=== PATIENT | female | born 1960 | race American Indian/Alaskan Native ===

== ENCOUNTER 2016-10-28 18:27 | Emergency (ER) | payer OTHER ==
[~2016-10-28] VITALS: Ht 152.4 cm; Wt 86.6 kg
[~2016-10-28 18:27] MED LIST: AMLODIPINE BES2.5 M1; ASPART SQ; ASPI-COR81 M3 PO; BAYETTA; BUPROPION HCL100 M1; CELEXA10 MG; ENALAPRIL MALE2.5 MG PO; ENALAPRIL5 M1; ESCITALOPRAM10 M1 PO; GLYBURIDE5 MG PO; HYDROCHLOROTH12.5 M2; HYDROCHLOROTHIA50 MG PO; HYDROCODONE/ACE1 TA2; LANTI; LEVEMIR100 U/M1 SQ; LIDOCAINE AND P1 CRE TOP; LIPI20 PO; OXYBUTYNIN CHLOR5 MG PO; TEN50 PO; TORADOL10 MG PO; WEL100 PO
[2016-10-28 21:00] LABS: BASOPHIL % 0.4 % (0-2); PLATELET COUNT 192 x10^3mcL (130-400)
[2016-10-28 21:05] LABS: CALCIUM 8.6 mg/dL (8.5-10.1); CARBON DIOXIDE 32.3 mmol/L (21-32); CHLORIDE SERUM 98 mmol/L (98-107); CREATININE SERUM 0.7 mg/dL (0.6-1.0); GFR1 > 60 mL/min; GLUCOSE SERUM 425 mg/dL (74-106); POTASSIUM SERUM 3.9 mmol/L (3.5-5.1); SODIUM SERUM 136 mmol/L (136-145)
[2016-10-28 21:09] LABS: ALKALINE PHOSPHATASE 86 U/L (46-116); ALT/SGPT 39 U/L (14-59); AST/SGOT 15 U/L (15-37); BILIRUBIN TOTAL 0.3 mg/dL (0.20-1.00); TOTAL PROTEIN, SERUM 6.8 g/dL (6.4-8.2)
[2016-10-28 21:10] LABS: ALBUMIN 3.3 g/dL (3.4-5.0)
[2016-10-28 23:21] VITALS: BP 165/107
== END 2016-10-28 23:21 | disposition home or self-care (01) ==
LOC: ED 18:27
PROVIDERS: Emergency Medicine
DX: M54.5 Low back pain (principal); E11.65 Type 2 diabetes mellitus with hyperglycemia; G89.29 Other chronic pain; I10 Essential (primary) hypertension; Z88.5 Allergy status to narcotic agent
CPT/HCPCS: 82962; J1815; J1885; J7030

== ENCOUNTER 2017-02-07 12:38 | Inpatient (IN) | payer OTHER ==
[2017-02-07 14:41] LABS: BASOPHIL % 0.1 % (0-2); PLATELET COUNT 192 x10^3mcL (130-400); RED CELL DISTRIBUTION WIDTH 12.8 % (11.5-14.5)
[2017-02-07 15:17] LABS: ALKALINE PHOSPHATASE 85 U/L (46-116); ALT/SGPT 32 U/L (14-59); AST/SGOT 17 U/L (15-37); BILIRUBIN TOTAL 0.5 mg/dL (0.20-1.00); CALCIUM 8.2 mg/dL (8.5-10.1); CARBON DIOXIDE 29.6 mmol/L (21-32); CHLORIDE SERUM 102 mmol/L (98-107); CREATININE SERUM 0.8 mg/dL (0.6-1.0); GFR1 > 60 mL/min; SODIUM SERUM 136 mmol/L (136-145); TOTAL PROTEIN, SERUM 6.6 g/dL (6.4-8.2)
[2017-02-07 15:22] LABS: ALBUMIN 2.9 g/dL (3.4-5.0)
[2017-02-07 15:23] LABS: GLUCOSE SERUM 512 mg/dL (74-106)
[2017-02-07 16:09] LABS: microscopic required? YES
[2017-02-07 16:10] LABS: urine erythrocyte 3+ (NEGATIVE)
[2017-02-07 17:22] LABS: MAGNESIUM 2.2 mg/dL (1.8-2.4); PHOSPHOROUS 2.2 mg/dL (2.5-4.9)
[2017-02-07 17:29] LABS: CHOLESTEROL/HDL RATIO 2.9
[2017-02-07 18:23] LABS: FREE T4 1.01 ng/dL (0.76-1.46); T4(THYROXINE) 8.6 ug/dL (4.7-13.3)
[2017-02-07 19:24] LABS: T3 TOTAL 1.19 ng/mL
[2017-02-07 21:56] VITALS: BP 144/84
[2017-02-08] VITALS (7 sets, daily range): BP systolic 125–185; BP diastolic 62–89
[2017-02-08 07:18] LABS: CALCIUM 8.1 mg/dL (8.5-10.1); CARBON DIOXIDE 29.4 mmol/L (21-32); CHLORIDE SERUM 107 mmol/L (98-107); CREATININE SERUM 0.5 mg/dL (0.6-1.0); GFR1 > 60 mL/min; GLUCOSE SERUM 170 mg/dL (74-106); PHOSPHOROUS 2.9 mg/dL (2.5-4.9); POTASSIUM SERUM 3.7 mmol/L (3.5-5.1); SODIUM SERUM 141 mmol/L (136-145)
[2017-02-09 05:57] VITALS: BP 162/82
[2017-02-09 07:33] LABS: CALCIUM 8.1 mg/dL (8.5-10.1); CHLORIDE SERUM 108 mmol/L (98-107); CREATININE SERUM 0.5 mg/dL (0.6-1.0); GFR1 > 60 mL/min; GLUCOSE SERUM 115 mg/dL (74-106); POTASSIUM SERUM 3.5 mmol/L (3.5-5.1); SODIUM SERUM 142 mmol/L (136-145)
[2017-02-09 08:57] VITALS: BP 154/84; BP 162/82
[2017-02-09 09:06] VITALS: BP 173/96
[2017-02-09] MEDS ORDERED: LEVAQUIN750 MG PO (09:53)
[2017-02-09] MEDS ORDERED: MIRALAX17 GM/Dose PO (09:53)
[2017-02-09 11:55] VITALS: BP 183/91
[2017-02-09 12:47] VITALS: BP 189/93
[2017-02-09] MEDS ORDERED: AMLODIPINE BES2.5 M1 PO ×2 (12:57→14:49)
[2017-02-09 13:58] VITALS: BP 154/84
[2017-02-09] MEDS ORDERED: ADULT LOW DOSE81 MG PO (14:45)
[2017-02-09] MEDS ORDERED: NEU100 PO (14:49)
[2017-02-09] MEDS ORDERED: ENALAPRIL MALE2.5 MG PO (14:49)
[2017-02-09] MEDS ORDERED: TEN50 PO (14:49)
[2017-02-09] MEDS ORDERED: WEL100 PO (14:49)
[2017-02-09] MEDS ORDERED: LIDOCAINE AND P1 CRE TOP (14:49)
[2017-02-09] MEDS ORDERED: LIPI20 PO (14:49)
[2017-02-09] MEDS ORDERED: ELA25 PO (14:49)
[2017-02-09] MEDS ORDERED: BG FS (14:49)
[2017-02-09] MEDS ORDERED: BAYETTA (14:49)
[2017-02-09] MEDS ORDERED: GLU500 PO (14:49)
[2017-02-09] MEDS ORDERED: LEVEMIR100 U/M1 SQ ×2 (14:49)
[2017-02-09] MEDS ORDERED: OXYBUTYNIN CHLOR5 MG PO (14:49)
[2017-02-09] MEDS ORDERED: ESCITALOPRAM10 M1 PO (14:49)
== END 2017-02-09 16:36 | disposition home or self-care (01) | DRG 465 ==
LOC: ED 12:38 → DU 15:40 → MU 02-09 12:52
PROVIDERS: Emergency Medicine; ADMIT Family Medicine
DX: N13.30 Unspecified hydronephrosis (principal); E11.40 Type 2 diabetes mellitus with diabetic neuropathy, unspecified; E44.0 Moderate protein-calorie malnutrition; E11.65 Type 2 diabetes mellitus with hyperglycemia; K59.09 Other constipation; G89.29 Other chronic pain; M54.9 Dorsalgia, unspecified; I10 Essential (primary) hypertension; F32.9 Major depressive disorder, single episode, unspecified; B96.20 Unspecified Escherichia coli [E. coli] as the cause of diseases classified elsewhere; N39.0 Urinary tract infection, site not specified; F17.210 Nicotine dependence, cigarettes, uncomplicated; R32 Unspecified urinary incontinence; E83.51 Hypocalcemia; Z90.49 Acquired absence of other specified parts of digestive tract; Z88.5 Allergy status to narcotic agent; Z79.899 Other long term (current) drug therapy; Z79.4 Long term (current) use of insulin; Z83.3 Family history of diabetes mellitus; Z82.49 Family history of ischemic heart disease and other diseases of the circulatory system; Z82.0 Family history of epilepsy and other diseases of the nervous system; Z68.30 Body mass index [BMI] 30.0-30.9, adult
CPT/HCPCS: 76770; 82962; 83880; 84439; J1815; J1885; J1956; J2765; J3490; J7030; Q0092

== ENCOUNTER 2017-08-24 01:24 | Emergency (ER) | payer OTHER ==
[~2017-08-24] VITALS: Ht 149.9 cm; Wt 84.0 kg
[~2017-08-24 01:24] MED LIST changes: +ADULT LOW DOSE81 MG PO; +AMLODIPINE BES2.5 M1 PO; +BG FS; +ELA25 PO; +GLU500 PO; +LEVAQUIN750 MG PO; +MIRALAX17 GM/Dose PO; +NEU100 PO
[2017-08-24 01:30] VITALS: Ht 149.9 cm; Wt 84.0 kg
[2017-08-24 02:55] LABS: UA SPECIFIC GRAVITY 1.015 (1.005-1.035); urine erythrocyte NEGATIVE (NEGATIVE)
[2017-08-24 03:00] LABS: microscopic required? YES
[2017-08-24 03:16] LABS: CALCIUM 8.7 mg/dL (8.5-10.1); CARBON DIOXIDE 15.3 mmol/L (21-32); POTASSIUM SERUM 4.5 mmol/L (3.5-5.1)
[2017-08-24 03:22] LABS: CREATININE SERUM 1.1 mg/dL (0.6-1.0)
[2017-08-24 06:35] VITALS: BP 161/90
== END 2017-08-24 06:35 | disposition home or self-care (01) ==
LOC: ED 01:24
PROVIDERS: Emergency Medicine
DX: M54.9 Dorsalgia, unspecified (principal); E11.65 Type 2 diabetes mellitus with hyperglycemia; I10 Essential (primary) hypertension; G89.29 Other chronic pain; Z76.0 Encounter for issue of repeat prescription; Z88.5 Allergy status to narcotic agent
CPT/HCPCS: 36600; 82962; J1815; J1885; J7030; Q0092

== ENCOUNTER 2018-01-05 02:34 | Emergency (ER) | payer OTHER ==
[~2018-01-05] VITALS: Ht 149.9 cm; Wt 87.1 kg
[2018-01-05 04:47] VITALS: BP 141/65
== END 2018-01-05 04:47 | disposition home or self-care (01) ==
LOC: ED 02:34
DX: M54.5 Low back pain (principal); I10 Essential (primary) hypertension; E11.9 Type 2 diabetes mellitus without complications; G89.29 Other chronic pain; F32.9 Major depressive disorder, single episode, unspecified
CPT/HCPCS: J1885; Q0092

== ENCOUNTER 2018-01-27 04:48 | Emergency (ER) | payer OTHER ==
[~2018-01-27] VITALS: Ht 149.9 cm; Wt 85.9 kg
[2018-01-27 04:56] VITALS: Ht 149.9 cm; Wt 85.9 kg
[2018-01-27 08:28] VITALS: BP 148/112
== END 2018-01-27 08:38 | disposition home or self-care (01) ==
LOC: ED 04:48
DX: M54.9 Dorsalgia, unspecified (principal); I16.0 Hypertensive urgency; I10 Essential (primary) hypertension; E11.40 Type 2 diabetes mellitus with diabetic neuropathy, unspecified; M79.7 Fibromyalgia; Z88.5 Allergy status to narcotic agent
CPT/HCPCS: J3010; J3490

== ENCOUNTER 2018-03-26 16:10 | Emergency (ER) | payer OTHER ==
[~2018-03-26] VITALS: Ht 147.3 cm; Wt 84.8 kg
[2018-03-26 16:30] VITALS: Ht 147.3 cm; Wt 84.8 kg
[2018-03-26 17:05] LABS: BASOPHIL % 0.3 % (0-2); PLATELET COUNT 204 x10^3mcL (130-400); RED CELL DISTRIBUTION WIDTH 12.8 % (11.5-14.5)
[2018-03-26 17:22] LABS: CALCIUM 9.9 mg/dL (8.5-10.1); CARBON DIOXIDE 30.1 mmol/L (21-32); CHLORIDE SERUM 98 mmol/L (98-107); CREATININE SERUM 0.7 mg/dL (0.6-1.0); GFR1 > 60 mL/min; GLUCOSE SERUM 341 mg/dL (74-106); POTASSIUM SERUM 4.3 mmol/L (3.5-5.1); SODIUM SERUM 134 mmol/L (136-145)
[2018-03-26 17:27] LABS: ALBUMIN 3.6 g/dL (3.4-5.0); ALKALINE PHOSPHATASE 85 U/L (46-116); ALT/SGPT 48 U/L (14-59); AST/SGOT 25 U/L (15-37); BILIRUBIN TOTAL 0.6 mg/dL (0.20-1.00); LIPASE 139 IU/L (73-393); TOTAL PROTEIN, SERUM 7.3 g/dL (6.4-8.2)
[2018-03-26 18:05] LABS: UA SPECIFIC GRAVITY >=1.030 (1.005-1.035); microscopic required? YES; urine erythrocyte NEGATIVE (NEGATIVE)
[2018-03-26 19:18] VITALS: BP 175/94
== END 2018-03-26 19:18 | disposition home or self-care (01) ==
LOC: ED 16:10
PROVIDERS: Emergency Medicine
DX: N39.0 Urinary tract infection, site not specified (principal); I10 Essential (primary) hypertension; E11.9 Type 2 diabetes mellitus without complications; F32.9 Major depressive disorder, single episode, unspecified; G89.29 Other chronic pain; Z88.5 Allergy status to narcotic agent
CPT/HCPCS: J1885; J2270

== ENCOUNTER 2018-07-18 01:12 | Inpatient (IN) | payer OTHER ==
[~2018-07-18] VITALS: Ht 147.3 cm; Wt 83.9 kg
[2018-07-18 01:21] VITALS: Ht 147.3 cm; Wt 83.9 kg
[2018-07-18 03:37] LABS: BASOPHIL % 0.3 % (0-2); PLATELET COUNT 191 x10^3mcL (130-400); RED CELL DISTRIBUTION WIDTH 12.7 % (11.5-14.5)
[2018-07-18 05:39] LABS: ALBUMIN 3.4 g/dL (3.4-5.0); BILIRUBIN TOTAL 0.36 mg/dL (0.20-1.00); CARBON DIOXIDE 29.4 mmol/L (21-32); CREATININE SERUM 1.1 mg/dL (0.6-1.0); TOTAL PROTEIN, SERUM 7.1 g/dL (6.4-8.2)
[2018-07-18 05:47] LABS: CHOLESTEROL/HDL RATIO 3.5; MAGNESIUM 1.9 mg/dL (1.8-2.4); PHOSPHOROUS 4.3 mg/dL (2.5-4.9)
[2018-07-18 06:12] VITALS: BP 157/80
[2018-07-18 09:09] VITALS: BP 142/84
[2018-07-18 12:23] VITALS: BP 146/72
[2018-07-18 13:01] LABS: microscopic required? YES; urine erythrocyte 2+ (NEGATIVE)
[2018-07-18 17:12] VITALS: BP 169/85
[2018-07-18 18:08] VITALS: BP 149/81
[2018-07-18 21:42] VITALS: BP 144/87
[2018-07-19 05:03] VITALS: BP 139/83
[2018-07-19 07:24] LABS: BASOPHIL % 0.3 % (0-2); PLATELET COUNT 173 x10^3mcL (130-400)
[2018-07-19 07:34] LABS: CALCIUM 8.8 mg/dL (8.5-10.1); CHLORIDE SERUM 105 mmol/L (98-107); CREATININE SERUM 0.6 mg/dL (0.6-1.0); GFR1 > 60 mL/min; GLUCOSE SERUM 145 mg/dL (74-106); PHOSPHOROUS 3.3 mg/dL (2.5-4.9); POTASSIUM SERUM 4.3 mmol/L (3.5-5.1); SODIUM SERUM 143 mmol/L (136-145)
[2018-07-19 08:47] VITALS: BP 168/81
[2018-07-19 12:32] VITALS: BP 139/74
[2018-07-19 13:24] VITALS: BP 139/74
== END 2018-07-19 14:29 | disposition home or self-care (01) | DRG 756 ==
LOC: ED 01:12 → DU 04:14
PROVIDERS: Emergency Medicine; ADMIT Internal Medicine
DX: F41.9 Anxiety disorder, unspecified (principal); N17.0 Acute kidney failure with tubular necrosis; E11.65 Type 2 diabetes mellitus with hyperglycemia; E44.1 Mild protein-calorie malnutrition; I10 Essential (primary) hypertension; F32.9 Major depressive disorder, single episode, unspecified; E78.5 Hyperlipidemia, unspecified; G89.29 Other chronic pain; M54.9 Dorsalgia, unspecified; Z66 Do not resuscitate; F17.210 Nicotine dependence, cigarettes, uncomplicated; Z68.38 Body mass index [BMI] 38.0-38.9, adult; Z79.84 Long term (current) use of oral hypoglycemic drugs; Z88.6 Allergy status to analgesic agent; Z90.49 Acquired absence of other specified parts of digestive tract; Z98.891 History of uterine scar from previous surgery; Z83.3 Family history of diabetes mellitus; Z82.49 Family history of ischemic heart disease and other diseases of the circulatory system; Z82.0 Family history of epilepsy and other diseases of the nervous system
CPT/HCPCS: 82962; 83880; 85378; J2270; J7030; Q0092

== ENCOUNTER 2019-06-12 19:46 | Emergency (ER) | payer OTHER ==
[~2019-06-12] VITALS: Ht 147.3 cm; Wt 79.4 kg
[2019-06-12 20:04] VITALS: Ht 147.3 cm; Wt 79.4 kg
[2019-06-12 21:01] LABS: UA SPECIFIC GRAVITY 1.025 (1.005-1.035); microscopic required? YES; urine erythrocyte TRACE (NEGATIVE)
[2019-06-12 21:06] LABS: BASOPHIL % 0.3 % (0-2); PLATELET COUNT 246 x10^3mcL (130-400); RED CELL DISTRIBUTION WIDTH 12.9 % (11.5-14.5)
[2019-06-12 21:34] LABS: CALCIUM 8.8 mg/dL (8.5-10.1); CHLORIDE SERUM 96 mmol/L (98-107); CREATININE SERUM 0.7 mg/dL (0.6-1.0); GFR1 > 60 mL/min; GLUCOSE SERUM 289 mg/dL (74-106); POTASSIUM SERUM 3.7 mmol/L (3.5-5.1); SODIUM SERUM 134 mmol/L (136-145)
[2019-06-12 21:38] LABS: ALKALINE PHOSPHATASE 78 U/L (46-116); ALT/SGPT 42 U/L (14-59); AST/SGOT 16 U/L (15-37); BILIRUBIN TOTAL 0.4 mg/dL (0.20-1.00); LIPASE 114 IU/L (73-393); TOTAL PROTEIN, SERUM 6.9 g/dL (6.4-8.2)
[2019-06-12 21:51] LABS: ALBUMIN 3.3 g/dL (3.4-5.0)
[2019-06-13 02:01] VITALS: BP 161/79
== END 2019-06-13 02:01 | disposition home or self-care (01) ==
LOC: ED 19:46
PROVIDERS: Emergency Medicine
DX: N39.0 Urinary tract infection, site not specified (principal); K59.00 Constipation, unspecified
CPT/HCPCS: J2270; J2405; J7030; Q9967

== ENCOUNTER 2019-07-14 18:52 | Inpatient (IN) | payer OTHER ==
[~2019-07-14] VITALS: Ht 148.6 cm; Wt 90.1 kg
[2019-07-14 22:29] LABS: UA SPECIFIC GRAVITY >=1.030 (1.005-1.035); microscopic required? YES; urine erythrocyte NEGATIVE (NEGATIVE)
[2019-07-14 23:56] LABS: PLATELET COUNT 205 x10^3mcL (130-400); RED CELL DISTRIBUTION WIDTH 13.1 % (11.5-14.5)
[2019-07-15 00:09] LABS: CALCIUM 8.6 mg/dL (8.5-10.1); CARBON DIOXIDE 28.8 mmol/L (21-32); CHLORIDE SERUM 101 mmol/L (98-107); CREATININE SERUM 0.9 mg/dL (0.6-1.0); GFR1 > 60 mL/min; GLUCOSE SERUM 324 mg/dL (74-106); POTASSIUM SERUM 3.9 mmol/L (3.5-5.1); SODIUM SERUM 139 mmol/L (136-145)
[2019-07-15 00:14] LABS: ALKALINE PHOSPHATASE 70 U/L (46-116); ALT/SGPT 38 U/L (14-59); AST/SGOT 17 U/L (15-37); BILIRUBIN TOTAL 0.4 mg/dL (0.20-1.00); LIPASE 77 IU/L (73-393); TOTAL PROTEIN, SERUM 6.8 g/dL (6.4-8.2)
[2019-07-15 00:43] LABS: ATYPICAL LYMPH 1 %; BAND NEUTROPHIL 2 % (0-10); MONOCYTE 8 % (0-7); PLATELET MORPHOLOGY PLATELETS NORMAL; SEGMENTED NEUTROPHILS 49 % (37-75); rbc morphology (normal/abnorm) NORMAL (NORMAL)
[2019-07-15 00:45] LABS: ALBUMIN 3.3 g/dL (3.4-5.0)
[2019-07-15 02:30] LABS: MAGNESIUM 1.8 mg/dL (1.8-2.4); PHOSPHOROUS 3.4 mg/dL (2.5-4.9)
[2019-07-15 13:27] VITALS: BP 142/71
[2019-07-15 13:30] VITALS: Ht 148.6 cm; Wt 90.1 kg
[2019-07-15 18:01] VITALS: BP 124/50
[2019-07-15 21:25] VITALS: BP 113/48
[2019-07-16 06:11] VITALS: BP 138/51
[2019-07-16 06:34] LABS: BASOPHIL % 0.2 % (0-2); PLATELET COUNT 167 x10^3mcL (130-400); RED CELL DISTRIBUTION WIDTH 13.2 % (11.5-14.5)
[2019-07-16 07:00] LABS: CALCIUM 7.9 mg/dL (8.5-10.1); CARBON DIOXIDE 28.6 mmol/L (21-32); CHLORIDE SERUM 106 mmol/L (98-107); CREATININE SERUM 0.6 mg/dL (0.6-1.0); GFR1 > 60 mL/min; GLUCOSE SERUM 241 mg/dL (74-106); MAGNESIUM 1.9 mg/dL (1.8-2.4); PHOSPHOROUS 2.6 mg/dL (2.5-4.9); POTASSIUM SERUM 3.8 mmol/L (3.5-5.1); SODIUM SERUM 141 mmol/L (136-145)
[2019-07-16 08:42] VITALS: BP 142/78
[2019-07-16 12:55] VITALS: BP 182/87
[2019-07-16 16:25] VITALS: BP 117/54
[2019-07-16 20:16] VITALS: BP 155/76
[2019-07-17 06:00] VITALS: BP 145/59
[2019-07-17 06:22] LABS: BASOPHIL % 0.2 % (0-2); PLATELET COUNT 135 x10^3mcL (130-400); RED CELL DISTRIBUTION WIDTH 13.3 % (11.5-14.5)
[2019-07-17 06:45] LABS: CALCIUM 7.9 mg/dL (8.5-10.1); CARBON DIOXIDE 28.5 mmol/L (21-32); CHLORIDE SERUM 104 mmol/L (98-107); CREATININE SERUM 0.6 mg/dL (0.6-1.0); GFR1 > 60 mL/min; GLUCOSE SERUM 184 mg/dL (74-106); MAGNESIUM 1.7 mg/dL (1.8-2.4); PHOSPHOROUS 2.7 mg/dL (2.5-4.9); POTASSIUM SERUM 3.9 mmol/L (3.5-5.1); SODIUM SERUM 140 mmol/L (136-145)
[2019-07-17 08:02] VITALS: BP 151/75
[2019-07-17 12:35] VITALS: BP 156/70
[2019-07-17 16:00] VITALS: BP 162/78
[2019-07-17 20:20] VITALS: BP 150/59
[2019-07-18 05:49] VITALS: BP 174/76
[2019-07-18 06:43] VITALS: BP 160/76
[2019-07-18 08:24] LABS: BASOPHIL % 0.1 % (0-2); PLATELET COUNT 133 x10^3mcL (130-400); RED CELL DISTRIBUTION WIDTH 13.1 % (11.5-14.5)
[2019-07-18 08:48] LABS: CALCIUM 7.6 mg/dL (8.5-10.1); CHLORIDE SERUM 104 mmol/L (98-107); CREATININE SERUM 0.6 mg/dL (0.6-1.0); GFR1 > 60 mL/min; GLUCOSE SERUM 155 mg/dL (74-106); POTASSIUM SERUM 3.7 mmol/L (3.5-5.1); SODIUM SERUM 138 mmol/L (136-145)
[2019-07-18 09:30] VITALS: BP 136/64
[2019-07-18 13:38] VITALS: BP 150/54
[2019-07-18 17:34] VITALS: BP 149/65
[2019-07-18 20:27] VITALS: BP 157/70
[2019-07-19 06:13] VITALS: BP 164/63
[2019-07-19 06:45] VITALS: BP 147/68
[2019-07-19 06:55] LABS: CALCIUM 7.5 mg/dL (8.5-10.1); CARBON DIOXIDE 28.8 mmol/L (21-32); CHLORIDE SERUM 101 mmol/L (98-107); CREATININE SERUM 0.6 mg/dL (0.6-1.0); GFR1 > 60 mL/min; GLUCOSE SERUM 149 mg/dL (74-106); SODIUM SERUM 136 mmol/L (136-145)
[2019-07-19 09:08] VITALS: BP 160/72
[2019-07-19 12:54] VITALS: BP 95/46
[2019-07-19 17:45] VITALS: BP 142/72
[2019-07-19 20:57] VITALS: BP 145/64
[2019-07-20 04:25] VITALS: BP 121/63
[2019-07-20 06:35] LABS: BASOPHIL % 0.3 % (0-2); PLATELET COUNT 149 x10^3mcL (130-400); RED CELL DISTRIBUTION WIDTH 12.8 % (11.5-14.5)
[2019-07-20 08:48] VITALS: BP 138/100
[2019-07-20 13:26] VITALS: BP 128/61
[2019-07-20 17:34] VITALS: BP 108/69
[2019-07-20 20:11] VITALS: BP 147/79
[2019-07-21 05:34] VITALS: BP 143/78
[2019-07-21 07:32] LABS: CALCIUM 7.7 mg/dL (8.5-10.1); CARBON DIOXIDE 29.3 mmol/L (21-32); CHLORIDE SERUM 101 mmol/L (98-107); CREATININE SERUM 0.7 mg/dL (0.6-1.0); GFR1 > 60 mL/min; GLUCOSE SERUM 132 mg/dL (74-106); POTASSIUM SERUM 4.1 mmol/L (3.5-5.1); SODIUM SERUM 137 mmol/L (136-145)
[2019-07-21 08:28] VITALS: BP 146/81
[2019-07-21 08:44] LABS: BASOPHIL % 0.4 % (0-2); PLATELET COUNT 181 x10^3mcL (130-400); RED CELL DISTRIBUTION WIDTH 12.9 % (11.5-14.5)
[2019-07-21 12:09] VITALS: BP 158/80
[2019-07-21 20:42] VITALS: BP 123/72
[2019-07-22 05:36] VITALS: BP 137/63
[2019-07-22 06:45] LABS: BASOPHIL % 0.4 % (0-2); PLATELET COUNT 195 x10^3mcL (130-400)
[2019-07-22 08:10] LABS: CALCIUM 8.6 mg/dL (8.5-10.1); CARBON DIOXIDE 30.8 mmol/L (21-32); CHLORIDE SERUM 105 mmol/L (98-107); CREATININE SERUM 0.6 mg/dL (0.6-1.0); GFR1 > 60 mL/min; GLUCOSE SERUM 142 mg/dL (74-106); POTASSIUM SERUM 4.2 mmol/L (3.5-5.1); SODIUM SERUM 142 mmol/L (136-145)
[2019-07-22 08:39] VITALS: BP 170/89
[2019-07-22] MEDS ORDERED: LEVAQUIN500 M1 PO (10:33)
[2019-07-22 13:05] VITALS: BP 165/92
[2019-07-22 13:37] VITALS: BP 165/92
[2019-07-22 13:40] VITALS: BP 165/92
== END 2019-07-22 14:34 | disposition home or self-care (01) | DRG 463 ==
LOC: ED 18:52 → MU 07-15 00:42
PROVIDERS: Emergency Medicine; Student in an Organized Health Care Education/Training Program; ADMIT Internal Medicine
DX: N10 Acute pyelonephritis (principal); N17.0 Acute kidney failure with tubular necrosis; E11.40 Type 2 diabetes mellitus with diabetic neuropathy, unspecified; B96.29 Other Escherichia coli [E. coli] as the cause of diseases classified elsewhere; E78.5 Hyperlipidemia, unspecified; G89.29 Other chronic pain; M54.9 Dorsalgia, unspecified; F32.9 Major depressive disorder, single episode, unspecified; F17.210 Nicotine dependence, cigarettes, uncomplicated; I10 Essential (primary) hypertension; M79.7 Fibromyalgia; N32.81 Overactive bladder; Z66 Do not resuscitate; Z68.33 Body mass index [BMI] 33.0-33.9, adult; Z79.4 Long term (current) use of insulin; Z88.5 Allergy status to narcotic agent; Z90.49 Acquired absence of other specified parts of digestive tract; Z56.0 Unemployment, unspecified; Z23 Encounter for immunization; Z87.440 Personal history of urinary (tract) infections; Z83.3 Family history of diabetes mellitus; Z82.49 Family history of ischemic heart disease and other diseases of the circulatory system; Z82.0 Family history of epilepsy and other diseases of the nervous system; Z79.899 Other long term (current) drug therapy
CPT/HCPCS: 82962; 90658; 94150; G0378; J0696; J1200; J1815; J1956; J2185; J2270; J2405; J7030; J7040; J7620; Q0092; Q9967

== ENCOUNTER 2019-10-04 12:25 | Emergency (ER) | payer OTHER ==
[~2019-10-04] VITALS: Ht 147.3 cm; Wt 79.4 kg
[~2019-10-04 12:25] MED LIST changes: +LEVAQUIN500 M1 PO
[2019-10-04 12:39] VITALS: Ht 147.3 cm; Wt 79.4 kg
[2019-10-04 14:33] VITALS: BP 120/71
== END 2019-10-04 14:33 | disposition home or self-care (01) ==
LOC: ED 12:25
DX: S20.229A Contusion of unspecified back wall of thorax, initial encounter (principal); S00.01XA Abrasion of scalp, initial encounter; R07.89 Other chest pain; F17.210 Nicotine dependence, cigarettes, uncomplicated; I10 Essential (primary) hypertension; E11.40 Type 2 diabetes mellitus with diabetic neuropathy, unspecified; G89.29 Other chronic pain; M79.7 Fibromyalgia; H53.8 Other visual disturbances; Z88.5 Allergy status to narcotic agent; W18.2XXA Fall in (into) shower or empty bathtub, initial encounter; Y93.E1 Activity, personal bathing and showering; Y92.091 Bathroom in other non-institutional residence as the place of occurrence of the external cause; Y99.8 Other external cause status
CPT/HCPCS: J1885

== ENCOUNTER 2019-11-04 12:25 | Emergency (ER) | payer OTHER ==
[~2019-11-04] VITALS: Ht 147.3 cm; Wt 82.1 kg
[2019-11-04 12:46] VITALS: Ht 147.3 cm; Wt 82.1 kg
[2019-11-04 14:59] VITALS: BP 173/106
== END 2019-11-04 14:59 | disposition home or self-care (01) ==
LOC: ED 12:25
DX: M54.42 Lumbago with sciatica, left side (principal); M25.552 Pain in left hip; I10 Essential (primary) hypertension; M79.7 Fibromyalgia; E11.40 Type 2 diabetes mellitus with diabetic neuropathy, unspecified; Z88.5 Allergy status to narcotic agent; W01.0XXA Fall on same level from slipping, tripping and stumbling without subsequent striking against object, initial encounter; Y93.89 Activity, other specified; Y92.89 Other specified places as the place of occurrence of the external cause; Y99.8 Other external cause status
CPT/HCPCS: J1885; Q0092

== ENCOUNTER 2019-12-26 14:26 | Emergency (ER) | payer OTHER ==
[~2019-12-26] VITALS: Ht 149.9 cm; Wt 83.0 kg
[2019-12-26 14:53] VITALS: BP 163/100; Ht 149.9 cm; Wt 83.0 kg
== END 2019-12-26 17:29 | disposition home or self-care (01) ==
LOC: ED 14:26
DX: M54.5 Low back pain (principal); G89.29 Other chronic pain; I10 Essential (primary) hypertension; E11.40 Type 2 diabetes mellitus with diabetic neuropathy, unspecified; M79.7 Fibromyalgia; E66.9 Obesity, unspecified; Z88.5 Allergy status to narcotic agent

== ENCOUNTER 2020-03-09 15:40 | Emergency (ER) | payer OTHER ==
[~2020-03-09] VITALS: Ht 147.3 cm; Wt 81.6 kg
[2020-03-09 15:48] VITALS: Ht 147.3 cm; Wt 81.6 kg
[2020-03-09 18:10] VITALS: BP 170/88
== END 2020-03-09 18:28 | disposition home or self-care (01) ==
LOC: ED 15:40
DX: M54.42 Lumbago with sciatica, left side (principal); R06.00 Dyspnea, unspecified; Z87.440 Personal history of urinary (tract) infections; I10 Essential (primary) hypertension; E11.40 Type 2 diabetes mellitus with diabetic neuropathy, unspecified; G89.29 Other chronic pain; M79.7 Fibromyalgia; Z88.5 Allergy status to narcotic agent
CPT/HCPCS: J3490; Q0092

== ENCOUNTER 2020-06-23 16:15 | Emergency (ER) | payer OTHER ==
[~2020-06-23] VITALS: Ht 147.3 cm; Wt 81.6 kg
[2020-06-23 16:22] VITALS: BP 144/89; Ht 147.3 cm; Wt 81.6 kg
== END 2020-06-23 17:34 | disposition home or self-care (01) ==
LOC: ED 16:15
DX: N39.0 Urinary tract infection, site not specified (principal); I10 Essential (primary) hypertension; E11.40 Type 2 diabetes mellitus with diabetic neuropathy, unspecified; M79.7 Fibromyalgia; G89.29 Other chronic pain; Z88.5 Allergy status to narcotic agent